=== PATIENT | female | born 1990 | race Caucasian/White ===

== ENCOUNTER → 2019-07-15 | Outpatient (CLI) | payer OTHER, SELFPAY ==
[2018-10-12 10:59] VITALS: BMI 21.8
[2019-07-19 14:07] LABS: Age Gdln ACOG Testing 30-65 (.)
[2019-07-19 17:40] LABS: HPV APTIMA, High Risk Negative (Negative)
[2019-07-19 17:41] LABS: HPV Reflexed? YES, CHARGE PATIENT
== END | disposition home or self-care (01) ==
LOC: LABSPEC 15:54
PROVIDERS: Visit Provider Advanced Practice Midwife
DX: Z12.4 Encounter for screening for malignant neoplasm of cervix (principal)
CPT/HCPCS: 87624; 88175; G0145

== ENCOUNTER → 2020-06-04 14:21 | Outpatient (CLI) | payer OTHER, SELFPAY ==
[2018-10-12 10:59] VITALS: BMI 21.8
[2020-06-04 17:37] LABS: Potassium 3.9 mmol/L (3.5-5.1)
== END ==
PROVIDERS: Visit Provider Dermatology
DX: Z79.899 Other long term (current) drug therapy (principal); L70.0 Acne vulgaris; B88.0 Other acariasis
CPT/HCPCS: 36415; 84132

== ENCOUNTER → 2021-05-19 10:51 | Outpatient (CLI) | payer OTHER, SELFPAY ==
[2018-10-12 10:59] VITALS: BMI 21.8
--- NOTE | 2021-05-19 10:58 | MRI_ITS ---
STUDY: MRI BRAIN WITH AND WITHOUT CONTRAST REASON FOR EXAM: Female, 31 years old. HEADACHES, FAMILY H/O ANEURYSM TECHNIQUE: Standardized multiplanar fat and water weighted pulse sequences were obtained. IV 13 cc dotarem was administered for the contrast portion of the examination. COMPARISON: None. FINDINGS: Examination is less than optimal due to artifact related to braces. Normal size of the ventricles and extra-axial spaces for the patient''s age. Normal white matter tracts of the supratentorial brain. Normal bilateral basal ganglia. Normal thalami. There is no extra-axial fluid accumulation. Normal flow voids within the major intracranial circulation suggesting patency by spin echo criteria. Normal venous enhancement. There is no enhancing intra-axial or extra-axial abnormality. Normal sella turcica, pituitary gland, infundibular stalk, optic chiasm and hypothalamus. Normal tectal plate and pineal gland. Normal midbrain, lilibeth and medulla. Normal cerebellum. Normal basal cisterns. Normal bilateral temporal bones. Normal bilateral internal auditory canals. No demonstrated orbital abnormality, within the constraints of a routine brain study. Normal visualized paranasal sinuses. Normal calvarium and skull base. Normal visualized soft tissue structures. Normal visualized upper cervical spine. MRI/Brain W/WO Contrast IMPRESSION: Limited study due to braces creating artifact otherwise unenhanced and enhanced MRI of the brain. Electronically Signed: Mateusz Vergara MD at 22:08 EST , Service support ,
== END ==
LOC: MRI 10:55
PROVIDERS: PCP Family Medicine; Referring Provider Family Medicine; Visit Provider Family Medicine
DX: G43.909 Migraine, unspecified, not intractable, without status migrainosus (principal); Z82.49 Family history of ischemic heart disease and other diseases of the circulatory system
CPT/HCPCS: 70553; A9575

== ENCOUNTER → 2024-03-07 | Outpatient (CLI) | payer OTHER, SELFPAY ==
--- NOTE | 2024-03-07 13:13 | VDLE_ITS ---
Reason For Study: LLE Pain RIGHT LEFT FV is compressible, spontaneous, phasic, GSV is normal. competent and demonstrates normal CFV is compressible, spontaneous, phasic, augmentation. competent, and demonstrates normal Procedure augmentation. This is a venous duplex using B-mode, color FV is compressible, spontaneous, phasic, flow and spectral Doppler. competent and demonstrates normal Exam performed in department. augmentation. The exam was diagnostic. POP V is compressible, spontaneous, phasic, A preliminary report was called and/or faxed competent and demonstrates normal to Dr. Hernandez's office. augmentation. T/P Trunk is compressible. PTV is compressible. LT PerV is compressible. VL/Venous Duplex US, Unilateral Interpretation Summary Deep veins of the left lower extremity are patent and compressible segmentally. There is no evidence of left lower extremity deep vein thrombosis. Valvular competence appears intac t within the proximal deep venous system on the left . The left great saphenous vein appears patent a nd compressible segmentally. The right femoral vein is patent, compressible, and competent. Ordering Physician: Iman Hernandez Referring Physician: Iman Hernandez Performed By: Dustin Peguero, RVT
== END | disposition home or self-care (01) ==
PROVIDERS: PCP Family Medicine; Referring Provider Family Medicine; Visit Provider Family Medicine
DX: M79.605 Pain in left leg (principal)
CPT/HCPCS: 93971